=== PATIENT | female | born 1945 | race Caucasian/White ===

== ENCOUNTER 2022-07-01 08:40 | Outpatient (CLI) | payer MEDICARE, SELFPAY ==
--- NOTE | ~2022-07-01 | MM_ITS ---
EXAMINATION: MM screening dom BI w petra HISTORY: Screening mammogram TECHNIQUE: Craniocaudal and mediolateral oblique 3-D tomosynthesis images were obtained and synthetic 2-D images were generated. CAD analysis was submitted and interpreted. COMPARISON: No prior mammogram is available for comparison at this institution. BREAST PARENCHYMAL COMPOSITION: There are scattered areas of fibroglandular density. FINDINGS: There is no suspicious mass, calcification, or architectural distortion to suggest malignan cy in either breast. IMPRESSION: 1. No mammographic evidence of malignancy. 2. Recommend routine screening mammography in one year. BI-RADS Category 1: Negative Reviewed, dictated and finalized at location [facility].
== END 2022-07-01 08:41 | disposition home or self-care (01) ==
LOC: ANHIMG 08:46
PROVIDERS: PCP Family Medicine Sports Medicine; Visit Provider Family Medicine Sports Medicine
DX: Z12.31 Encounter for screening mammogram for malignant neoplasm of breast (principal)
CPT/HCPCS: 77063; 77067

== ENCOUNTER 2024-01-09 07:16 | Outpatient (CLI) | payer MEDICARE, SELFPAY ==
--- NOTE | ~2024-01-09 | MM_ITS ---
EXAMINATION: MM screening dom BI w petra HISTORY: Screening mammogram TECHNIQUE: Craniocaudal and mediolateral oblique 3-D tomosynthesis images were obtained and synthetic 2-D images were generated. CAD analysis was submitted and interpreted. COMPARISON: 07/01/2022 bilateral screening mammogram BREAST PARENCHYMAL COMPOSITION: There are scattered areas of fibroglandular density. FINDINGS: There is an approximately 1.3 x 3 mm asymmetric opacity with suggestion of radiating spicul es in the inner aspect of the very posterior lower outer quadrant of the left breast (craniocaudal To mosynthesis image [id number]). Diagnostic left mammogram and left breast ultrasound examination are recomm ended. No suspicious mass, architectural distortion, malignant calcification, skin thickening or retraction or other significant new or developing density is noted otherwise. IMPRESSION: 1. 1.3 x 3 mm asymmetric opacity and architectural distortion is suggested in the deep inner aspect o f the lower outer quadrant of the left breast 2. Diagnostic left mammogram and left breast ultrasound examination are recommended BI-RADS Category 0: Incomplete: Needs additional imaging evaluation. Reviewed, dictated and finalized at location [facility]. IMPRESSION: 1. 1.3 x 3 mm asymmetric opacity and architectural distortion is suggested in t he deep inner aspect of the lower outer quadrant of the left breast 2. Diagnostic left mammogram and left breast ultrasound examination are recomme nded BI-RADS Category 0: Incomplete: Needs additional imaging evaluation.
== END 2024-01-09 07:17 | disposition home or self-care (01) ==
LOC: ANHIMG 07:19
PROVIDERS: PCP Family Medicine Sports Medicine; Visit Provider Family Medicine Sports Medicine
DX: Z12.31 Encounter for screening mammogram for malignant neoplasm of breast (principal); R92.8 Other abnormal and inconclusive findings on diagnostic imaging of breast
CPT/HCPCS: 77063; 77067

== ENCOUNTER 2024-03-17 15:00 | Outpatient (CLI) | payer MEDICARE, SELFPAY ==
--- NOTE | ~2024-03-17 | MR_ITS ---
MRI of the left foot CLINICAL HISTORY: Nonunion stress fracture TECHNIQUE: Axial proton-density and proton-density fat-sat images, sagittal T1-weighted and STIR imag es, and coronal T1-weighted and proton-density fat-sat images were performed. FINDINGS: There is a transverse, nondisplaced fracture through the very proximal shaft of the second metatarsal with mild surrounding marrow edema. Remaining osseous structures otherwise intact. No othe r abnormal marrow signal or fracture seen. Joint spaces are intact. No joint effusion identified. Flexor and extensor tendons are intact. No intermetatarsal bursitis or Le's neuroma. No mass lesi on or fluid flexion seen. Visualized intrinsic musculature of the foot is intact. Visualized plantar fascia is intact. Lisfranc ligament is intact. IMPRESSION: Transverse, nondisplaced fracture of the very proximal shaft of the second metatarsal, likely subacut e fracture. Reviewed, dictated and finalized at [facility]. IMPRESSION: Transverse, nondisplaced fracture of the very proximal shaft of the second meta tarsal, likely subacute fracture.
== END 2024-03-17 15:01 ==
LOC: MICIMG 15:01
PROVIDERS: PCP Family Medicine Sports Medicine; Visit Provider Podiatrist Foot & Ankle Surgery
DX: S92.325A Nondisplaced fracture of second metatarsal bone, left foot, initial encounter for closed fracture (principal); X58.XXXA Exposure to other specified factors, initial encounter
CPT/HCPCS: 73718